=== PATIENT | male | born 1960 | race Two or more races ===

== ENCOUNTER → 2019-08-26 | Outpatient (CLI) | payer OTHER ==
[~2019-08-26] MED LIST: IOHEXOL 240 MG/ML 50ML VIAL. PO ONE; IOHEXOL 300 MG/ML 100ML VIAL. IV ONE
--- NOTE | 2019-08-26 12:28 | RAD ---
EXAM: CT pelvis with contrast. HISTORY: Left inguinal hernia. TECHNIQUE: CT of the pelvis was performed after the intravenous administration of 75 mL Omnipaque 300. One or more of the following individualized dose reduction techniques were utilized for this examination: 1. Automated exposure control. 2. Adjustment of the mA and/or kV according to patient size. 3. Use of iterative reconstruction technique. COMPARISON: None. FINDINGS: Bone windows reveal no suspicious lesions. A moderate left inguinal hernia extends into the left hemiscrotum and contains fat and a small amount of ascites. There are no included bowel loops. The included fat is somewhat edematous. The prostate is enlarged measuring 5.7 x 4.3 cm. The bladder is decompressed but demonstrates some wall thickening. There are no pathologically enlarged lymph nodes. Sigmoid diverticulosis is mild. There is no small bowel obstruction. IMPRESSION: 1. Moderate left inguinal hernia containing fat and a small amount of ascites. 2. Moderate to severe benign prostatic hypertrophy. Diffuse bladder wall thickening indicates chronic outlet obstruction or inflammation. Electronically signed by: Arnav Vergara MD (08/26/2019 12:25 PM) [facility]
== END | disposition home or self-care (01) ==
LOC: CT 09:24
PROVIDERS: ATTEND Family Medicine
DX: K40.90 Unilateral inguinal hernia, without obstruction or gangrene, not specified as recurrent (principal); R18.8 Other ascites; N40.0 Benign prostatic hyperplasia without lower urinary tract symptoms; K57.30 Diverticulosis of large intestine without perforation or abscess without bleeding
CPT/HCPCS: 72193; Q9966; Q9967